=== PATIENT | female | born 1995 | race Caucasian/White ===

== ENCOUNTER 2017-05-12 21:52 | Emergency (ER) | payer BC ==
[~2017-05-12] VITALS: Ht 162.6 cm; Wt 86.8 kg
[~2017-05-12 21:52] MED LIST: NO HOME MEDICATIONS
[2017-05-12 22:04] VITALS: BP 134/70; PULSE 89; TEMP 99.2
== END 2017-05-13 00:20 | disposition home or self-care (01) ==
LOC: COL.ER 21:52
DX: S93.401A Sprain of unspecified ligament of right ankle, initial encounter (principal); W10.9XXA Fall (on) (from) unspecified stairs and steps, initial encounter; X50.1XXA Overexertion from prolonged static or awkward postures, initial encounter; Y92.009 Unspecified place in unspecified non-institutional (private) residence as the place of occurrence of the external cause

== ENCOUNTER → 2019-06-01 | Outpatient (CLI) | payer OTHER | LOC: COL.RAD 14:21 | DX: D48.5 Neoplasm of uncertain behavior of skin (principal) ==